=== PATIENT | female | born 1950 | race Caucasian/White ===

== ENCOUNTER 2023-03-26 11:29 | Inpatient (IN) | payer MEDICARE, OTHER, SELFPAY ==
[2023-03-26 11:31] VITALS: BP 183/103; PULSE 72; RESP 18; TEMP 36.5; O2SAT 100; BMI 29.0
--- NOTE | 2023-03-26 12:10 | RAD_ITS ---
STUDY: X-RAY - PELVIS AND RIGHT HIP REASON FOR EXAM: Female, 73 years old. Hip pain following a fall. TECHNIQUE: 2 views of the pelvis and hip. COMPARISON: None. FINDINGS: There is a non-specific bowel gas pattern. There are multiple calcified phleboliths. There is narrowing with cortical sclerosis and osteophyte formation of the sacroiliac joint consistent with degenerative osteoarthritic changes. Normal bilateral superior and inferior pubic rami. There is narrowing with sclerosis of the pubic symphysis. Normal bilateral ischial tuberosities. Nondisplaced basi-cervical fracture. Normal acetabulum. Normal hip joint. RAD/HIP, UNI W/ Pelvis 2-3 Views IMPRESSION: Nondisplaced basi-cervical fracture of the proximal right femur. Electronically Signed: Ciro Salmon MD at 12:33 EDT ,
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
[2023-03-26 13:18] LABS: Absolute Lymphocyte Count 0.65 X10^3/uL (0.83-4.51); Absolute Neutrophil Count 7.4 X10^3/uL (2.0-7.7); Basophil# 0.04 X10^3/uL; Basophil% 0.5 % (0-1); Eosinophil# 0.01 X10^3/uL; Eosinophils% 0.1 % (0-5); Hematocrit 43.4 % (37-47); Hemoglobin 13.8 g/dL (12.0-15.0); Lymphocyte # 0.65 X10^3/ul (0.83-4.51); Lymphocyte % 7.7 % (19-41); Mean Corp Hgb Conc 31.8 g/dL (32-36); Mean Corpuscular Hgb 30.2 pg (27.0-32.0); Mean Platelet Vol. 8.9 fl (6.2-12.0); Monocyte# 0.39 X10^3/uL; Monocyte% 4.6 % (0-10); NRBC Flagged by Analyzer 0 % (0-5); Neutrophil # 7.37 X10^3/uL (2.7-7.7); Neutrophil % 86.7 % (47-70); Platelet Count 248 K/mm3 (150-450); RBC Distribution Width CV 13.7 % (11.6-14.6); Red Blood Count 4.57 M/mm3 (4.2-5.4); White Blood Count 8.5 K/mm3 (4.4-11.0)
[2023-03-26] MEDS: morphine 8 MG/ML Syringe IV (13:28)
[2023-03-26 13:32] LABS: Anion Gap 5 (5-15); BUN 20 mg/dL (7-18); Calcium,Total 9.4 mg/dL (8.5-10.1); Chloride 105 mmol/L (98-107); Creatinine, Serum 0.77 mg/dL (0.55-1.02); EST Glomerular Filtration Rate 78 mL/min (>60); Est Glom Filt Rate - Afr Amer 94 mL/min (>60); Estimated Creatinine Clearance 43.74 ml/min; Glucose 110 mg/dL (74-106); Potassium 4.2 mmol/L (3.5-5.1); Sodium Level 138 mmol/L (136-145)
[2023-03-26 14:20] VITALS: BP 126/68; RESP 18; O2SAT 98
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
[2023-03-26 14:28] VITALS: BP 126/68; PULSE 86; RESP 16; TEMP 36.8; O2SAT 98
[2023-03-26 15:59] VITALS: BMI 26.3
[2023-03-26 16:02] VITALS: BP 160/91; PULSE 87; RESP 18; TEMP 36.9; O2SAT 97
[2023-03-26] MEDS: Acetaminophen 500 MG Tablet 1000 MG PO ×2 (16:16→20:37)
[2023-03-26] MEDS: Dext 5%-0.45% NS 1,000 ML 100 ML IV (16:16)
[2023-03-26 18:28] LABS: ALB/GLOB Ratio 1.1 RATIO (0.9-2.4); AST(SGOT) 29 U/L (15-37); Alanine Aminotransfer ALT/SGPT 39 U/L (13-56); Albumin, Serum 3.5 g/dL (3.2-5.0); Alkaline Phosphatase 138 U/L (45-117); Anion Gap 7 (5-15); BUN 17 mg/dL (7-18); BUN/Creat Ratio 20.6 RATIO (10-20); Calcium,Total 8.9 mg/dL (8.5-10.1); Chloride 104 mmol/L (98-107); Creatinine, Serum 0.83 mg/dL (0.55-1.02); EST Glomerular Filtration Rate 72 mL/min (>60); Est Glom Filt Rate - Afr Amer 87 mL/min (>60); Globulin 3.1 g/dL (2.2-4.2); Glucose 177 mg/dL (74-106); Potassium 3.8 mmol/L (3.5-5.1); Protein, Total 6.6 g/dL (6.4-8.2); Sodium Level 137 mmol/L (136-145)
[2023-03-26 18:32] LABS: Vitamin D,25 Hydroxy 60.9 ng/mL
[2023-03-26 19:41] VITALS: BP 138/81; PULSE 81; RESP 14; TEMP 36.7; O2SAT 97
[2023-03-26] MEDS: HYDROmorphone 1 MG/ML Syringe IV (20:34)
[2023-03-26] MEDS: 0.9% Saline Lock 10 ML Syringe IV (20:35)
[2023-03-26] MEDS: Heparin Injection (Vial) 5,000 UNIT/ML VIAL 5000 UNIT SC (20:36)
[2023-03-26 22:41] VITALS: BMI 26.3
[2023-03-27] VITALS (11 sets, daily range): BP systolic 117–183; BP diastolic 74–103; PULSE 72–94; RESP 15–18; TEMP 36.3–36.7; O2SAT 95–100; BMI 26.3
[2023-03-27] MEDS: Dext 5%-0.45% NS 1,000 ML 100 ML IV ×2 (00:49→19:51)
[2023-03-27] MEDS: Acetaminophen 500 MG Tablet 1000 MG PO (05:07)
--- NOTE | 2023-03-27 06:00 | EKG12_ITS ---
Test Reason : AM EKG Blood Pressure : / mmHG Vent. Rate : 072 BPM Atrial Rate : 072 BPM P-R Int : 154 ms QRS Dur : 096 ms QT Int : 428 ms P-R-T Axes : 062 066 037 degrees QTc Int : 468 ms Normal sinus rhythm Normal ECG No previous ECGs available Confirmed by WILLIAM QUINTANA, TYRON ([id number]), managing editor JESSICA HO ([id number]) on 03/27/2023 1:59:45 PM Referred By: SALLY Confirmed By:TYRON THOMAS MD
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
[2023-03-27 07:58] LABS: Absolute Lymphocyte Count 1.35 X10^3/uL (0.83-4.51); Absolute Neutrophil Count 4.8 X10^3/uL (2.0-7.7); Basophil# 0.03 X10^3/uL; Basophil% 0.4 % (0-1); Eosinophil# 0.07 X10^3/uL; Hematocrit 37.8 % (37-47); Hemoglobin 12.2 g/dL (12.0-15.0); Lymphocyte # 1.35 X10^3/ul (0.83-4.51); Lymphocyte % 19.7 % (19-41); Mean Corp Hgb Conc 32.3 g/dL (32-36); Mean Corpuscular Hgb 30.1 pg (27.0-32.0); Mean Corpuscular Volume 93.3 fL (81-99); Mean Platelet Vol. 9.2 fl (6.2-12.0); Monocyte% 8.7 % (0-10); NRBC Flagged by Analyzer 0 % (0-5); Neutrophil # 4.79 X10^3/uL (2.7-7.7); Neutrophil % 69.9 % (47-70); Platelet Count 217 K/mm3 (150-450); RBC Distribution Width CV 13.8 % (11.6-14.6); RBC Distribution Width SD 47.2 fl (35.1-43.9); Red Blood Count 4.05 M/mm3 (4.2-5.4); White Blood Count 6.9 K/mm3 (4.4-11.0)
[2023-03-27 08:17] LABS: Anion Gap 4 (5-15); BUN 14 mg/dL (7-18); BUN/Creat Ratio 19.4 RATIO (10-20); Calcium,Total 8.6 mg/dL (8.5-10.1); Chloride 109 mmol/L (98-107); Creatinine, Serum 0.72 mg/dL (0.55-1.02); EST Glomerular Filtration Rate 84 mL/min (>60); Est Glom Filt Rate - Afr Amer 101 mL/min (>60); Estimated Creatinine Clearance 43.74 ml/min; Glucose 115 mg/dL (74-106); Magnesium 2.3 mg/dL (1.6-2.6); Potassium 3.7 mmol/L (3.5-5.1); Sodium Level 139 mmol/L (136-145)
[2023-03-27 08:26] LABS: Phosphorus 3.5 mg/dL (2.5-4.9)
[2023-03-27] MEDS: HYDROmorphone 1 MG/ML Syringe IV (10:23)
[2023-03-27] MEDS: 0.9% Saline Lock 10 ML Syringe IV (10:23)
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
[2023-03-27] MEDS: Lactated Ringers 1,000 ML 15 ML IV (15:15)
[2023-03-27] MEDS: Cefazolin 2 GM in 0.9% Normal Saline 100 ML IV (15:48)
--- NOTE | 2023-03-27 16:11 | RAD_ITS ---
STUDY: X-RAY - PELVIS AND RIGHT HIP REASON FOR EXAM: Female, 73 years old. Short gamma nail. TECHNIQUE: 19 intraoperative views of the pelvis and hip. 123 seconds of fluoroscopy. 20.66 mGy exposure. COMPARISON: Pelvis and right hip, March 26, 2023 FINDINGS: The initial images again demonstrate the mildly displaced basocervical fracture of the right hip. No evidence of dislocation. Subsequent images demonstrate placement of a medullary dano in the proximal shaft with transfixing gamma nail extending into the femoral head and neck. There is mildly improved alignment of the fracture fragment. Please refer to the operative report for further details. RAD/Hip 1 view with Pelvis IMPRESSION: Normal x-ray examination of the pelvis and hip. Electronically Signed: Callum Buitrago DO at 17:55 EDT ,
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
[2023-03-27] MEDS: Heparin Injection (Vial) 5,000 UNIT/ML VIAL 5000 UNIT SC (22:01)
[2023-03-28 00:09] VITALS: BP 148/95; PULSE 91; RESP 18; TEMP 36.6; O2SAT 97
[2023-03-28] MEDS: Cefazolin 2 GM in 0.9% Normal Saline 100 ML IV ×2 (00:46→07:59)
[2023-03-28] MEDS: Oxycodone/Apap 5/325 Tablet PO ×2 (01:38→08:00)
[2023-03-28 06:00] VITALS: BMI 24.5
[2023-03-28 06:15] VITALS: BP 153/83; PULSE 76; RESP 18; TEMP 36.6; O2SAT 98
[2023-03-28 06:17] LABS: Absolute Lymphocyte Count 0.49 X10^3/uL (0.83-4.51); Absolute Neutrophil Count 6.4 X10^3/uL (2.0-7.7); Basophil# 0.01 X10^3/uL; Basophil% 0.1 % (0-1); Hematocrit 32.6 % (37-47); Hemoglobin 10.7 g/dL (12.0-15.0); Lymphocyte # 0.49 X10^3/ul (0.83-4.51); Lymphocyte % 6.6 % (19-41); Mean Corp Hgb Conc 32.8 g/dL (32-36); Mean Corpuscular Hgb 30.8 pg (27.0-32.0); Mean Corpuscular Volume 93.9 fL (81-99); Mean Platelet Vol. 9.1 fl (6.2-12.0); Monocyte# 0.54 X10^3/uL; Monocyte% 7.2 % (0-10); NRBC Flagged by Analyzer 0 % (0-5); Neutrophil % 85.7 % (47-70); POSITIVE DIFFERENTIAL YES; Platelet Count 171 K/mm3 (150-450); RBC Distribution Width CV 13.7 % (11.6-14.6); RBC Distribution Width SD 46.5 fl (35.1-43.9); Red Blood Count 3.47 M/mm3 (4.2-5.4); White Blood Count 7.5 K/mm3 (4.4-11.0)
[2023-03-28 06:19] LABS: Differential Indicated SCAN CRITERIA MET
[2023-03-28 06:37] LABS: Anion Gap 5 (5-15); BUN 9 mg/dL (7-18); BUN/Creat Ratio 11.7 RATIO (10-20); Calcium,Total 8.1 mg/dL (8.5-10.1); Chloride 106 mmol/L (98-107); Creatinine, Serum 0.77 mg/dL (0.55-1.02); EST Glomerular Filtration Rate 78 mL/min (>60); Est Glom Filt Rate - Afr Amer 94 mL/min (>60); Estimated Creatinine Clearance 41.97 ml/min; Glucose 174 mg/dL (74-106); Potassium 4.4 mmol/L (3.5-5.1); Sodium Level 137 mmol/L (136-145)
[2023-03-28 07:53] VITALS: O2SAT 95
[2023-03-28] MEDS: Heparin Injection (Vial) 5,000 UNIT/ML VIAL 5000 UNIT SC (08:04)
[2023-03-28] MEDS: Calcium Carbonate 500 MG Tablet PO ×2 (08:07→12:03)
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
[2023-03-28 08:51] VITALS: BP 157/86; PULSE 81; RESP 16; TEMP 36.5; O2SAT 99
--- NOTE | 2023-03-28 09:50 | CASEMGMT ---
Addendum entered by Thomas Garcia 03/28/23 10:20: Pt discharging home on Eliquis and has been e-scribed to [facility] Retail pharmacy. Call to Juan in the pharmacy who states will apply the savings card. Juan to contact pt re: savings card and co-pay. Pt made aware. Original Note: CHEYANNE DEJESUS NOTE: Pt being discharged. Script for WW obtained from Dr Bautista and sent to [facility] via [employer]. Reny @ [facility] made aware of referral and that pt is discharging today. She will deliver WW to room. CHEYANNE DEJESUS to room. Pt made aware WW will be delivered to room today. Per [facility], they are unable to have records prepared prior to d/c for pt to take home w/her. They will need to mail them to her. Pt made aware and voices understanding. Consent for Med Records to be mailed to her signed by pt and given to Nakul cervantes, who states will fax to [facility]. Pt denies having other d/c planning needs or concerns. Rach PILLAI RN CM
[2023-03-28] MEDS: APIXABAN 2.5 MG TABLET (WCH) PO (10:05)
--- NOTE | 2023-03-28 11:05 | PCM.PN.ORT ---
Subjective Subjective Patient seen and examined. Denies significant pain. Out of bed with therapy. Anxious to go home. Denies fevers, chills, nausea vomiting, chest pain or shortness of breath. Urinating without difficulty. Objective Data Objective Data Vital Signs: Vital Signs Temp Pulse Resp BP Pulse Ox O2 Del Method O2 Flow Rate 97.7 F L 81 16 157/86 H 99 Room Air 2 03/28/23 08:51 03/28/23 08:51 03/28/23 08:51 03/28/23 08:51 03/28/23 08:51 03/28/23 08:51 03/27/23 21:54 Oxygen Flow Rate (L/min) 2 Oxygen Delivery Method Room Air Weight: 147 lb 4.301 oz Body Mass Index (BMI) 24.5 Intake & Output: Intake and Output for Last 24 Hours 03/26/23 03/27/23 03/28/23 23:59 23:59 23:59 Intake Total 4365 / 4365 2695.5 / 2695.5 Output Total 250 / 1050 2600 / 2600 2350 / 2350 Balance -250 / -650 1765 / 1765 345.5 / 345.5 Lab / Micro Data Result Diagrams: 03/28/23 05:48 03/28/23 05:48 Labs: Laboratory Results - last 24 hr 03/28/23 05:48: Sodium 137, Potassium 4.4, Chloride 106, Carbon Dioxide 26.0, Anion Gap 5, BUN 9, Creatinine 0.77, Estim Creat Clear Calc 41.97, Est GFR (MDRD) Af Amer 94, Est GFR (MDRD) Non-Af 78, BUN/Creatinine Ratio 11.7, Glucose 174 H, Calcium 8.1 L 03/28/23 05:48: WBC 7.5, RBC 3.47 L, Hgb 10.7 L, Hct 32.6 L, MCV 93.9, MCH 30.8, MCHC 32.8, RDW Std Deviation 46.5 H, RDW Coeff of Jasmina 13.7, Plt Count 171, MPV 9.1, Immature Gran % (Auto) 0.400, Neut % (Auto) 85.7 H, Lymph % (Auto) 6.6 L, [place]cock % (Auto) 7.2, Eos % (Auto) 0.0, Baso % (Auto) 0.1, Absolute Neuts (auto) 6.4, Absolute Lymphs (auto) 0.49 L, Nucleated RBC % 0 Radiography Diagnostic Testing: Radiology Impression Hip/Pelvis X-Ray 03/27/23 16:11 IMPRESSION: Normal x-ray examination of the pelvis and hip. Electronically Signed: Callum Buitrago DO at 17:55 EDT Reading Location ID and State: [address] [place] [address] Tel [phone], Service support , Physical Exam Narrative General - A&Ox3, NAD. VSS/AF Right lower extremity -incisional dressing C/D/I. SILT Sural, Saphenous, SPN, DPN, Tibial N. distributions. DP, PT 2+. BCR. DF, PF, EHL 5/5. No calf TTP. Assessment & Plan Assessment/Plan (1) Closed fracture of right hip: PLAN: POD#1 s/p right femur CMN - Pain control - Medicine following for medical management - PT/OT -weightbearing as tolerated right lower extremity - DVT PPX -Lovenox, SCDs, JUDY arias, early mobilization - Case management - D/C planning Patient doing very well. After therapy goals are met, okay for discharge to home from my standpoint. Patient has follow-up care arranged with orthopedic surgeon in [place]. Plan for staple removal in 2 weeks. Lovenox upon discharge x28 days. Okay to shower postoperative day #3 if no drainage, no tub soaks. Please call if any questions or concerns arise in the interim, otherwise I will sign off.
[2023-03-28 12:11] VITALS: BP 119/64; PULSE 80; RESP 16; TEMP 36.8; O2SAT 98
== END 2023-03-28 13:55 | disposition home or self-care (01) | DRG 482 ==
LOC: ED 13:48 → MS3 14:04
PROVIDERS: Student in an Organized Health Care Education/Training Program; Admitting Provider Internal Medicine; Emergency Provider Emergency Medicine; Visit Provider Internal Medicine
PROC: 0QS606Z Reposition Right Upper Femur with Intramedullary Internal Fixation Device, Open Approach (ICD-10-PCS; CPT 27245; principal; 2023-03-27 15:00)
DX: S72.041A Displaced fracture of base of neck of right femur, initial encounter for closed fracture (principal); R03.0 Elevated blood-pressure reading, without diagnosis of hypertension; V18.4XXA Pedal cycle driver injured in noncollision transport accident in traffic accident, initial encounter; Y93.55 Activity, bike riding
CPT/HCPCS: 36415; 71045; 73501; 73502; 76000; 80048; 80053; 82306; 83735; 84100; 85025; 86850; 86900; 86901; 93005; 97116; 97162; 97166; 97530; 99285; C1713; J7120; A4216; J2405; J7799